=== PATIENT | male | born 1990 | race Caucasian/White ===

== ENCOUNTER 2018-04-08 22:22 | Emergency (ER) | payer BC ==
[2018-04-08] MEDS ORDERED: IBUPROFEN 200 MG TAB PO ONE (23:16)
[2018-04-08] MEDS ORDERED: ACETAMINOPHEN 500 MG TAB PO ONE (23:16)
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
[2018-04-09] MEDS ORDERED: LIDOCAINE 4%/MENTHOL 1% PATCH TD ONE (00:08)
[2018-04-09 00:24] VITALS: BP 126/63
[2018-04-09] MEDS ORDERED: PATCH REMOVAL 1 EA PATCH TD SCH (21:00)
== END 2018-04-09 00:47 | disposition home or self-care (01) ==
DX: S46.912A Strain of unspecified muscle, fascia and tendon at shoulder and upper arm level, left arm, initial encounter (principal); S22.32XA Fracture of one rib, left side, initial encounter for closed fracture; S00.81XA Abrasion of other part of head, initial encounter; S40.819A Abrasion of unspecified upper arm, initial encounter; S50.319A Abrasion of unspecified elbow, initial encounter; E10.9 Type 1 diabetes mellitus without complications; Z87.891 Personal history of nicotine dependence; V18.2XXA Unspecified pedal cyclist injured in noncollision transport accident in nontraffic accident, initial encounter